=== PATIENT | female | born 1990 | race Caucasian/White ===

== ENCOUNTER 2019-05-07 06:58 | Inpatient (IN) ==
[~2019-05-07 06:58] MED LIST: CeFAZolin Premix DUPLEX 2,000 MG/50 ML BAG IVPB ONE; Famotidine 20 MG/2 ML VIAL IVP PRN; Metoclopramide 10 MG/2 ML VIAL IVP PRN; Naloxone 0.4 MG/ML INJ IVP PRN
[2019-05-07] MEDS ORDERED: Ringers Solution, Lactated 1,000 ML IVC SCH (07:00)
[2019-05-07] MEDS ORDERED: Ringers Solution, Lactated 1,000 ML ONE ×2 (07:00→07:48)
--- NOTE | 2019-05-07 07:04 | OB/GYN History & Physical ---
Date of Encounter: 05/07/19 Time of Encounter: 07:00 Assessment and Plan (1) First in adolescent 16 years of age or older in third trimester Current visit: Yes Status: Acute (2) 38 weeks gestation of Current visit: Yes Status: Acute (3) Spontaneous rupture of membranes Current visit: Yes Status: Acute (4) Oligohydramnios antepartum Current visit: Yes Status: Acute Qualifiers: Fetus number: single or unspecified fetus Qualified Code(s): O41.00X0 - Oligohydramnios, unspecified trimester, not applicable or unspecified (5) Breech presentation Current visit: Yes Status: Acute Patient will be kept nothing by mouth and prepped for a primary low transverse section Qualifiers: Fetus number: single or unspecified fetus Qualified Code(s): O32.1XX0 - Maternal care for breech presentation, not applicable or unspecified History of Present Illness HPI: Ms. Chapman is a 29 year old female 1 para 0 at 38-6/7 weeks who presents to labor and delivery complaining of spontaneous rupture membranes at approximately 6:30 this morning. She states she went to the bathroom her to pop had a large gush of fluid. She states she then had a second gush of fluid that was blood tinged. She was having some cramping that is resolved at this time was having movement not really feeling any movement at this time. Patient is a scheduled later in the week due to breech presentation. Upon arrival to labor and delivery she states she has had no additional leaking bedside ultrasound was performed and the patient confirming breech presentation and it was noted there was no fluid identified in any quadrant around the baby. Speculum exam the patient showed negative nitrazine pooling and ferning however. Due to the fact there is oligohydramnios based on ultrasound I would suspect they are patient is ruptured and we will proceed on with section. Patient states last time she ate was 10 PM. She was GBS negative, O-, rubella positive, Varicella positive Past Med Surg Social Fam HX - Past Medical History Source: patient, old records reviewed Medical history: no medical history Additional medical history: PCOS Psychiatric history: no psych history - Past Surgical History Additional surgical history: UMBILICAL HERNIA REPAIR, excision of left breast fibroadenoma - Social History Smoking Status: Never smoker Smokeless Tobacco Status: No Alcohol use: none Drug use: none Occupational status: employed Current living situation: Home - Independent Activity Level: Independent ambulation Recent Out of Country Travel Within the Last 8 Weeks: No Exposure or Possible Exposure to Illness During Travel: No - Family History Father Hx Family Cardiac Disorders: Yes (HTN) - Additional Family History Additional family history: Family history noncontributory at this time Obstetrical History - Pregnancies : 1 Para: 0 Livin Medications and Allergies Vits96/Iron Fum/Folic [ Tablet] 1 each PO DAILY 05/07/19 [History] Allergy/AdvReac Type Severity Reaction Status Date / Time No Known Allergies Allergy Verified 05/07/19 06:35 Review of System OB All systems PM: reviewed and no additional remarkable complaints except as stated - Genitourinary Genitourinary: other (leaking of fluid) Exam - Constitutional Constitutional: well developed, well nourished, no acute distress, average body habitus - HEENT HEENT: EOMI, PERRL, Mucus Membranes Moist - Neck Neck exam: full ROM - Lungs Respiratory exam: CTAB - Cardiovascular Cardiovascular exam: RRR - Abdomen Abdomen: Present: gravid ( heart tones 140s reactive no contraction seen, bedside ultrasound confirms breech presentation no fluid seen and any) - Cervix Dilation: 1 Effacement: 70 Station: -4 Results All other labs normal.
[2019-05-07 07:12] LABS: Amphetamine Screen,Urine Negative ng/mL (Cutoff=1000); Barbiturate Screen,Urine Negative ng/mL (Cutoff=200)
[2019-05-07 07:13] LABS: Basophils % 0.2 %; Benzodiazepines Screen,Urine Negative ng/mL (Cutoff=300); Cannabinoid Screen,Urine Negative ng/mL (Cutoff = 50); Cocaine Screen,Urine Negative ng/mL (Cutoff= 300); Eosinophils # 0.1 K/mcL (0.0-0.6); Hemoglobin 13.2 g/dL (11.5-15.4); Immature Granulocytes % 0.6 % (0-4); Lymphocytes # 2.3 K/mcL (0.6-4.6); Lymphocytes % 26.5 %; Mean Corpuscular HGB Conc 35.7 g/dL (31.6-35.5); Mean Corpuscular Hemoglobin 34.2 pg (28.0-33.3); Mean Corpuscular Volume 95.9 fL (83.0-100.0); Mean Platelet Volume 11.1 fL (9.4-12.4); Monocytes # 0.8 K/mcL (0.0-1.3); Monocytes % 8.5 %; Neutrophils # 5.6 K/mcL (1.6-8.9); Opiate Screen,Urine Negative ng/mL (Cutoff=300); Phencyclidine Screen,Urine Negative ng/mL (Cutoff=25); Platelet Count 200 K/mcL (140-400); Red Blood Count 3.86 M/mcL (3.82-4.97); Red Cell Distribution Width 12.5 % (11.5-14.5); Segmented Neutrophils % 63.2 %; White Blood Count 8.8 K/mcL (4.3-11.1)
[2019-05-07] MEDS ORDERED: *HR* FentaNYL (PF) 100 MCG/2 ML VIAL ONE (07:48)
[2019-05-07] MEDS ORDERED: *HR* Morphine Sulfate/PF 10 MG/10 ML AMPUL ONE (07:48)
[2019-05-07] MEDS ORDERED: *HR* Oxytocin 10 UNIT/ML VIAL IM ONE ×2 (07:48→09:05)
[2019-05-07] MEDS ORDERED: *HR* Phenylephrine 10 MG/ML VIAL ONE (07:48)
--- NOTE | 2019-05-07 08:04 | Anesthesia Evaluation PreOp ---
Date of Encounter: 05/07/19 Time of Encounter: 08:01 - Past History Planned Operation: Primary Cardiac History: Denies any Significant Hx Pulmonary History: Denies Any Significant HX WRIST LINER History: Denies Any Significant HX Other Medical History: Denies Any Significant HX Anesthesia History: No Prior Anesthetic Complications (never had NA; denies personal and family h/o GA complications), Past Anesthesia (umbilical hernia repair, lumpectomy) : Yes Alcohol Use: none Drug use: none Medications and Allergies Vits96/Iron Fum/Folic [ Tablet] 1 each PO DAILY 05/07/19 [History] Allergy/AdvReac Type Severity Reaction Status Date / Time No Known Allergies Allergy Verified 05/07/19 06:35 - Meds/Allergy Pre-op Review Medications Reviewed: Yes Allergies Reviewed: Yes Beta Blockers on Current Med List: No Anesthesia Results - Labs 05/07/19 06:55 Anesthesia Exam 112/80, HR 114, RR 14 O2 Sat Height 1.65 m Weight 68.2 kg NPO (# of Hours): >8hrs Pain Scale: 0 Pain Scale Used: Numeric (1 - 10) - HEENT Pupil (Motor): Pupils equal Mallampati: II Teeth: Normal Oral Opening: Greater than 3 - WRIST LINER LOC: Oriented WRIST LINER Motor: Normal RUE, Normal LUE, Normal RLE, Normal LLE, Normal Face WRIST LINER Sensory: Normal: RUE, LUE, RLE, LLE, Face - Cardiac Rhythm: Regular Murmur: None - Pulmonary Breath Sounds: bilateral Clear Respiratory Effort: Symmetrical Anesthesia Assess/Plan ASA Score: 2 Level of consciousness: Cooperative, Oriented, Tranquil Anesthetic Plan: General (plan B), Spinal (plan A) Autologous Blood: No Monitoring Plan: Standard Monitors Recovery Plan: PACU
[2019-05-07] MEDS ORDERED: Ibuprofen 400 MG TABLET PO PRN (08:46)
[2019-05-07] MEDS ORDERED: *HR* OxyCODONE/APAP 5/325 TABLET PO PRN (08:46)
[2019-05-07] MEDS ORDERED: Acetaminophen IV 1,000 MG/100 ML INFUS..BTL IVPB ONE (08:46)
[2019-05-07] MEDS ORDERED: Ondansetron 4 MG/2 ML VIAL IVP PRN ×2 (08:46→12:40)
--- NOTE | 2019-05-07 09:04 | Anesthesia Procedures ---
Date of Encounter: 05/07/19 Time of Encounter: 08:39 Procedures: Anesthesia - Epidural/Spinal Patient ID/Chart reviewed: Yes Patient examined: Yes OB Eval: Gestational age: 38 weeks 6 days OB Eval: : 1 OB Eval: Hx Para: 0 OB Eval: Contractions: Non-stressed pattern Consent Obtained: Yes Supplemental Oxygen: None/Room Air Site Prep: Aseptic Technique, Sterile prep and drape, 0.5% Chlorhexidine/Alcohol Patient position: upright Local Anesthetic: Lidocaine 1% Amount of Local Anesthetic used: 3 Interspace Used: L4-L5 Blood: No CSF: Yes Paresthesia: No Spinal Needle Gauge: 25 (3.5" pencan needle) Spinal Dose: see anesthesia record Procedure: successful on 1st attempt; patient tolerated procedure well; VSS Vitals + FHT's: see anesthesia record
--- NOTE | 2019-05-07 09:53 | OB/GYN Procedure Note ---
Section - Date of procedure: 05/07/19 Preop diagnosis: breech Post-op diagnosis: same Procedure: primary low transverse Surgeon: Sandra Tse Blood Loss: 500 Was there an aquatics assistant department head present: Yes Apparel Stock Checker: Kendra Hernandez Pharmacist Manager: Dev Chao Anesthesia Type: Spinal section complications: none Disposition: L&D Recovery Room Specimens: Placenta - (s) A Delivery Date: 05/07/19 Delivery Time: 08:59 Presentation: neftaly breech Gender: Female ("Everley") Viability: Viable Pounds: 6 Ounces: 12 Gram Weight: 3.065 kg at 1 minute: 8 at 5 minutes: 9 Shoulder Dystocia: not encountered Specimens collected: cord blood Placenta: spontaneous Cord: 3 umbilical vessels - Narrative Narrative: Patient was taken to the operative suite and placed under spinal anesthetic. She was then prepped and draped in normal sterile fashion in the dorsal supine position. Timeout was then performed. Antibiotics were given at room time. SCDs are on and active. Pfannenstiel skin incision is then made and carried through to underlying layer of fascia with the Bovie. The fascia was then incised in the midline and incision extended laterally with the Pablo scissors. The fascia was tented up and dissected off the rectus muscles sharply. The rectus muscles were in the midline and the peritoneum was tented up and entered sharply with the Metzenbaum scissors. The peritoneal incision was then extended bluntly. The bladder blade was then inserted and the vesicouterine peritoneum was entered sharply. Bladder flap was created digitally. A low transverse uterine incision was then made. The breech was brought to the incision and the infant was delivered using fundal pressure. There was no nuchal cord. Cord was clamped and cut. was handed to waiting nursery staff. Placenta delivered spontaneously complete and intact with a three-vessel cord. The uterus was cleared of all clots and debris using moist laparotomy sponge. The uterine incision was then closed using 0 Vicryl in a running locked fashion. A second layer of the same suture was used in an imbricating fashion. Additional [id number]-ek-tygyi sutures were used to The abdomen was then cleared of all clots and debris using copious irrigation. The fascial incision was then closed using 0 Vicryl in a running fashion. The skin was closed using 4-0 Vicryl in a subcuticular fashion. Steri-Strips and sterile dressing are then placed. Mother and infant taken to recovery in stable condition.
--- NOTE | 2019-05-07 10:16 | Anesthesia Evaluation Post Op ---
Date of Encounter: 05/07/19 Time of Encounter: 10:15 - Vital Signs Vital Signs: 110/77, HR 94, RR 14, T98.0F, SpO2 97% - Lungs Lungs: Clear Ascult./Percussion - Airway Airway: Non-obstructed - Cardiovascular Regular Rate - Mental Status Mental Status: Alert & Oriented, Answers Appropriately - Pain Pain Scale: 0 Pain Scale used: Numeric (1 - 10) - Nausea Vomiting Nausea Vomiting: Not Present - Hydration Hydration: NPO, Pat catheter - Discharge PostOp Status: Transfer Patient to floor
[2019-05-07] MEDS ORDERED: Metoclopramide 10 MG/2 ML VIAL IVP PRN (12:40)
[2019-05-07] MEDS ORDERED: Simethicone 80 MG TAB.CHEW PO PRN (12:40)
[2019-05-07] MEDS ORDERED: Sennosides 8.6 MG TABLET PO PRN (12:40)
[2019-05-07] MEDS ORDERED: Rho Immune Globulin 1,500 UNIT SYRINGE IM ONE (12:40)
[2019-05-07] MEDS ORDERED: Acetaminophen 325 MG TABLET PO PRN (12:40)
[2019-05-07] MEDS ORDERED: *HR* OxyCODONE Immed Rel 5 MG TABLET PO PRN (12:40)
[2019-05-07] MEDS ORDERED: Oxytocin 20 units/ LR 1000 mL 20 UNIT/1,000 ML BAG IVC SCH ×2 (12:40)
--- NOTE | 2019-05-07 13:47 | OB/GYN Progress Note ---
Date of Encounter: 05/07/19 Time of Encounter: 13:45 - Assessment and Plan (1) S/P section Current Visit: Yes Status: Acute Dressing looks fine with minimal pink on the right side which is outlined. Continue to monitor Subjective - Subjective Principal diagnosis: CTSP: saturating her dressing Interval history: Called to see patient after changing a 60% saturated original dressing. Patient denies any concerns at this time. She states she is not having any pain. The daughter is nursing well. She states she has had bouts of nausea following dizziness, but feels fine now. No vomiting. Patient reports: appetite normal, pain well controlled, no nauseated Objective - Vital Signs Latest vital signs: Vital Signs Temp Pulse Pulse Resp BP Pulse Ox 05/07/19 13:15 82 82 16 99/64 96 05/07/19 12:35 97.9 F 86 86 16 109/75 97 05/07/19 12:05 84 16 Intake and Output 05/06/19 05/07/19 05/07/19 23:59 07:59 15:59 Output Total 450 / 450 Balance -450 / -450 Output: Catheter 450 / 450 Other: Weight 68.2 kg Patient Weight 05/07/19 23:59 Weight 68.2 kg - I&O's I&O's: Intake & Output 05/04/19 05/05/19 05/06/19 05/07/19 23:59 23:59 23:59 23:59 Output Total 450 / 450 Balance -450 / -450 Weight 68.2 kg - Exam Lungs: bilateral: normal Chest: Normal S1, Normal S2 Extremities: Absent: tenderness Incision OB: Present: dressed (small area of pink on the right side of the incision) - Labs Labs: Abnormal lab results MCH 34.2 pg (28.0-33.3) H 05/07/19 06:55 MCHC 35.7 g/dL (31.6-35.5) H 05/07/19 06:55
[2019-05-08] MEDS: Ibuprofen 600 MG TABLET PO PRN ×4 (01:05→18:55)
[2019-05-08 06:25] LABS: Basophils % 0.2 %; Eosinophils # 0.1 K/mcL (0.0-0.6); Eosinophils % 0.8 %; Hematocrit 35.9 % (35.3-44.9); Hemoglobin 12.4 g/dL (11.5-15.4); Immature Granulocytes % 0.5 % (0-4); Lymphocytes # 2.4 K/mcL (0.6-4.6); Lymphocytes % 18.9 %; Mean Corpuscular HGB Conc 34.5 g/dL (31.6-35.5); Mean Corpuscular Hemoglobin 34.3 pg (28.0-33.3); Mean Corpuscular Volume 99.2 fL (83.0-100.0); Mean Platelet Volume 11.1 fL (9.4-12.4); Monocytes % 7.6 %; Neutrophils # 9.2 K/mcL (1.6-8.9); Platelet Count 162 K/mcL (140-400); Red Blood Count 3.62 M/mcL (3.82-4.97); Red Cell Distribution Width 12.4 % (11.5-14.5); White Blood Count 12.8 K/mcL (4.3-11.1)
[2019-05-08] MEDS: Prenatal Vit/FA 1 EACH TABLET PO SCH (08:01)
[2019-05-08] MEDS ORDERED: Rho Immune Globulin 1,500 UNIT SYRINGE IM ONE (12:00)
--- NOTE | 2019-05-08 12:58 | OB/GYN Progress Note ---
Date of Encounter: 05/08/19 Time of Encounter: 12:56 - Assessment and Plan (1) Status post primary low transverse section Current Visit: Yes Status: Acute Meeting all day 1 milestones Continue routine care Anticipate discharge home tomorrow (2) Breast feeding status of mother Current Visit: Yes Status: Acute support as needed Subjective - Subjective Principal diagnosis: s/p PLTCS Interval history: Feeling well. Out of bed without dizziness. Some abdominal discomfort-using binder. Cramping minimal, using ibuprofen and Percocet. every 2- 3 hours. Some nipple soreness. Voiding without difficulty. Passing flatus, no BM yet. Tolerating clear liquid diet. Patient reports: appetite normal, voiding normally, pain well controlled, ambulating normally : doing well, nursing well Objective - Vital Signs Latest vital signs: Vital Signs Temp Pulse Pulse Resp BP Pulse Ox 05/08/19 08:00 98.4 F 80 92 14 117/82 05/08/19 05:15 98.3 F 82 16 100/66 97 05/08/19 01:00 98.3 F 86 14 104/70 96 05/08/19 00:50 86 14 05/07/19 19:35 86 16 05/07/19 19:30 98.5 F 86 16 128/46 95 05/07/19 15:15 98.1 F 76 18 115/73 97 05/07/19 14:20 97.7 F 83 83 16 103/70 96 05/07/19 13:15 82 82 16 99/64 96 Intake and Output 05/07/19 05/08/19 05/08/19 23:59 07:59 15:59 Intake Total 900 / 1700 800 / 1700 Output Total 200 / 850 1750 / 2350 600 / 2350 Balance -200 / -850 -850 / -650 200 / -650 Intake: Oral 900 / 1700 800 / 1700 Output: Urine 650 / 1250 600 / 1250 Catheter 200 / 850 1100 / 1100 Other: Weight 66.224 kg Patient Weight 05/08/19 23:59 Weight 66.224 kg - Exam Lungs: bilateral: normal Chest: Normal S1, Normal S2 Extremities: Present: normal Abdomen: Present: normal appearance, soft Incision: Present: normal, dry, intact, dressed Uterus: Present: normal, firm Fundal Height: 2 (below and midline) - Labs Labs: Laboratory Results - last 24 hr 05/07/19 05/08/19 10:10 05:46 WBC 12.8 H RBC 3.62 L Hgb 12.4 Hct 35.9 MCV 99.2 MCH 34.3 H MCHC 34.5 RDW 12.4 Plt Count 162 MPV 11.1 Immature Gran % 0.5 Seg Neutrophils % 72.0 Lymphocytes % 18.9 Monocytes % 7.6 Eosinophils % 0.8 Basophils % 0.2 Neutrophils # 9.2 H Lymphocytes # 2.4 Monocytes # 1.0 Eosinophils # 0.1 Basophils # 0.0 Screen NEGATIVE Baby's Blood Type B RH POSITIVE Mother's Blood Type O RH NEGATIVE Rhogam Indicated YES Rhogam Req for Mother 1
[2019-05-08] MEDS: *HR* OxyCODONE/APAP 5/325 TABLET PO PRN ×2 (15:08→20:31)
[2019-05-09] MEDS: Ibuprofen 600 MG TABLET PO PRN ×2 (00:49→07:07)
[2019-05-09] MEDS: *HR* OxyCODONE/APAP 5/325 TABLET PO PRN ×3 (03:07→11:37)
[2019-05-09 08:48] VITALS: BP 121/80
[2019-05-09] MEDS: Prenatal Vit/FA 1 EACH TABLET PO SCH (09:58)
--- NOTE | 2019-05-09 12:30 | Discharge Summary ---
Date of Encounter: 05/09/19 Time of Encounter: 12:24 - Discharge Diagnosis (1) Status post primary low transverse section Priority: Primary Status: Acute Comments: Feeling well Tolerating regular diet Pain well-controlled with by mouth pain meds Ambulating independently Voiding independently Lochia light Passing flatus, no BM yet Vital signs stable Discharge home today (2) Breast feeding status of mother Priority: Secondary Status: Acute Comments: Community resources provided - Discharge Medications Prescriptions: New Ibuprofen [Motrin] 600 mg PO Q6HR PRN #30 tablet PRN Reason: Cramping OxyCODONE/APAP 5/325 [Percocet 5/325 MG] 1 each PO Q6HR PRN 5 Days #20 tablet PRN Reason: Moderate pain 4-6 Acetaminophen [Tylenol] 325 mg PO Q6HR PRN tablet PRN Reason: Fever/Pain Docusate [Colace] 100 mg PO BID #30 capsule Continued Vits96/Iron Fum/Folic [ Tablet] 1 each PO DAILY Home Medications: Vits96/Iron Fum/Folic [ Tablet] 1 each PO DAILY 05/07/19 [History] Acetaminophen [Tylenol] 325 mg PO Q6HR PRN tablet 05/09/19 [Rx] Docusate [Colace] 100 mg PO BID #30 capsule 05/09/19 [Rx] Ibuprofen [Motrin] 600 mg PO Q6HR PRN #30 tablet 05/09/19 [Rx] OxyCODONE/APAP 5/325 [Percocet 5/325 MG] 1 each PO Q6HR PRN 5 Days #20 tablet 05/09/19 [Rx] Allergies/Adverse Reactions: Allergy/AdvReac Type Severity Reaction Status Date / Time No Known Allergies Allergy Verified 05/07/19 06:35 Data Procedures and tests throughout hospitalization: Laboratory Tests 05/07/19 05/07/19 05/07/19 06:55 06:55 10:10 WBC 8.8 RBC 3.86 Hgb 13.2 Hct 37.0 MCV 95.9 MCH 34.2 H MCHC 35.7 H RDW 12.5 Plt Count 200 MPV 11.1 Immature Gran % 0.6 Seg Neutrophils % 63.2 Lymphocytes % 26.5 Monocytes % 8.5 Eosinophils % 1.0 Basophils % 0.2 Neutrophils # 5.6 Lymphocytes # 2.3 Monocytes # 0.8 Eosinophils # 0.1 Basophils # 0.0 Urine Opiates Screen Negative Ur Buprenorphine Scrn Negative Ur Barbiturates Screen Negative Ur Phencyclidine Scrn Negative Ur Amphetamines Screen Negative U Benzodiazepines Scrn Negative Urine Cocaine Screen Negative U Marijuana (THC) Screen Negative Ur Drug Screen Interp See Below Screen NEGATIVE Baby's Blood Type B RH POSITIVE Mother's Blood Type O RH NEGATIVE Rhogam Indicated YES Rhogam Req for Mother 1 05/08/19 05:46 WBC 12.8 H RBC 3.62 L Hgb 12.4 Hct 35.9 MCV 99.2 MCH 34.3 H MCHC 34.5 RDW 12.4 Plt Count 162 MPV 11.1 Immature Gran % 0.5 Seg Neutrophils % 72.0 Lymphocytes % 18.9 Monocytes % 7.6 Eosinophils % 0.8 Basophils % 0.2 Neutrophils # 9.2 H Lymphocytes # 2.4 Monocytes # 1.0 Eosinophils # 0.1 Basophils # 0.0 Urine Opiates Screen Ur Buprenorphine Scrn Ur Barbiturates Screen Ur Phencyclidine Scrn Ur Amphetamines Screen U Benzodiazepines Scrn Urine Cocaine Screen U Marijuana (THC) Screen Ur Drug Screen Interp Screen Baby's Blood Type Mother's Blood Type Rhogam Indicated Rhogam Req for Mother Date of admission: 05/07/19 06:58 Primary care physician: Lori Ty MD Discharging clinician: Shyanne Albarran Anticipated date of discharge: 05/09/19 - Patient Status Disposition: Home, Self-Care Condition: Good Functional capacity at discharge: independent ambulation Overall status at discharge: patient is progressing back to baseline - Discharge Instructions Follow Up With: Lori Ty MD [Primary Care Provider] - Sandra Valdivia DO [Partnered Physician] - - Diet and Activity Activity: increase activity as tolerated Diet: regular diet Hospital Course Reason for admission: section, IUP at term, ROM Delivery: section Episiotomy: none Laceration: none Other procedures: none complications: none Discharge diagnosis: IUP at term delivered baby: female Time Attestation: Total time spent providing and/or coordinating discharge services: Time Spent: Less than 30 minutes - VTE Reasons for not Prescribing Prophylaxis: Treatment not Indicated - Low risk for VTE Documentation of Mechanical Device: Intermittent pneumatic compression device Exam - Constitutional Vitals: Temp Pulse Resp BP Pulse Ox 97.9 F 96 14 121/80 97 05/09/19 08:47 05/09/19 08:47 05/09/19 09:44 05/09/19 08:47 05/08/19 20:22 General appearance IM: A&O X 3, pleasant, no acute distress, answers questions appropriately - Respiratory Respiratory exam: Present: CTAB - Cardiovascular Cardiovascular exam IM: Present: RRR, +S1, +S2 - GI/Abdominal GI/Abdominal exam IM: normal bowel sounds, no peritoneal signs Incision: normal, dry, intact, dressed - Rectal Rectal exam: deferred - Uterine Tone: Firm Uterus Position: At Umbilicus, Midline - Extremities Exam Extremities exam IM: Present: full ROM, normal capillary refill, normal inspection, radial pulses palpable and symmetrical - Neurological Exam Neurological exam: alert, CN II-XII intact, normal gait, oriented X3, reflexes normal, no focal deficits, strengths equal and symetr throughout - Psychiatric Additional comments: Signs and symptoms of depression discussed with patient and partner and both verbalized understanding of when to seek help
== END 2019-05-09 13:30 | disposition home or self-care (01) | DRG 787 ==
LOC: 1NENULAB → 1NENUOBS 12:40
PROVIDERS: ADMIT Registered Nurse; ATTEND Registered Nurse

== ENCOUNTER 2021-02-16 05:29 | Inpatient (IN) ==
[2021-02-16] MEDS ORDERED: Ondansetron 4 MG/2 ML VIAL IVP PRN ×3 (05:42→10:54)
[2021-02-16] MEDS ORDERED: Azithromycin 500 MG in 0.9 % Sodium Chloride 250 ML IVPB PRN (05:42)
[2021-02-16] MEDS ORDERED: Metoclopramide 10 MG/2 ML VIAL IVP PRN ×2 (05:42→10:54)
[2021-02-16] MEDS ORDERED: Famotidine 20 MG/2 ML VIAL IVP PRN (05:42)
[2021-02-16] MEDS ORDERED: Naloxone 0.4 MG/ML INJ IVP PRN (05:42)
[2021-02-16] MEDS ORDERED: Ringers Solution, Lactated 1,000 ML IVC ONE (05:43)
[2021-02-16] MEDS ORDERED: CeFAZolin 2,000MG/50ML DUPLEX 2,000 MG/50 ML BAG IVPB ONE (05:44)
[2021-02-16] MEDS ORDERED: Ringers Solution, Lactated 1,000 ML IVC SCH (05:45)
[2021-02-16] MEDS ORDERED: *HR* Morphine Sulfate/PF 10 MG/10 ML AMPUL ONE (06:51)
[2021-02-16] MEDS ORDERED: *HR* FentaNYL (PF) 250 MCG/5 ML VIAL ONE (06:51)
[2021-02-16 07:14] LABS: Basophils % 0.3 %; Eosinophils # 0.1 K/mcL (0.0-0.6); Eosinophils % 0.6 %; Hematocrit 33.6 % (35.3-44.9); Hemoglobin 11.7 g/dL (11.5-15.4); Immature Granulocytes % 0.4 % (0-4); Lymphocytes # 3.2 K/mcL (0.6-4.6); Lymphocytes % 32.6 %; Mean Corpuscular HGB Conc 34.8 g/dL (31.6-35.5); Mean Corpuscular Hemoglobin 33.7 pg (28.0-33.3); Mean Corpuscular Volume 96.8 fL (83.0-100.0); Mean Platelet Volume 11.6 fL (9.4-12.4); Monocytes # 0.4 K/mcL (0.0-1.3); Monocytes % 3.7 %; Neutrophils # 6.1 K/mcL (1.6-8.9); Platelet Count 236 K/mcL (140-400); Red Blood Count 3.47 M/mcL (3.82-4.97); Red Cell Distribution Width 12.9 % (11.5-14.5); Segmented Neutrophils % 62.4 %; White Blood Count 9.8 K/mcL (4.3-11.1)
[2021-02-16] MEDS ORDERED: *HR* HYDROmorphone (PF) 1 MG/ML SYRINGE IVP PRN (08:38)
[2021-02-16] MEDS ORDERED: Ketorolac 30 MG/ML VIAL ONE (08:49)
[2021-02-16] MEDS ORDERED: Acetaminophen IV 1,000 MG/100 ML BAG IVPB ONE (08:50)
[2021-02-16 10:24] LABS: Amphetamine Screen,Urine Negative ng/mL (Cutoff=1000); Barbiturate Screen,Urine Negative ng/mL (Cutoff=200); Benzodiazepines Screen,Urine Negative ng/mL (Cutoff=200); Cannabinoid Screen,Urine Negative ng/mL (Cutoff = 50); Cocaine Screen,Urine Negative ng/mL (Cutoff= 300); Opiate Screen,Urine Negative ng/mL (Cutoff=300); Phencyclidine Screen,Urine Negative ng/mL (Cutoff=25)
[2021-02-16] MEDS ORDERED: Oxytocin 20 units/ LR 1000 mL 20 UNIT/1,000 ML BAG IVC ONE (10:51)
[2021-02-16] MEDS ORDERED: Rho Immune Globulin 1,500 UNIT SYRINGE IM ONE (10:54)
[2021-02-16] MEDS: Prenatal Vit/FA 1 EACH TABLET PO SCH (12:16)
[2021-02-16] MEDS: Acetaminophen 325 MG TABLET PO SCH ×2 (12:28→17:49)
[2021-02-16] MEDS: Ibuprofen 600 MG TABLET PO SCH ×2 (12:29→17:50)
[2021-02-16] MEDS: Oxytocin 20 units/ LR 1000 mL 20 UNIT/1,000 ML BAG IVC SCH ×2 (12:30→20:18)
[2021-02-16] MEDS: *HR* OxyCODONE Immed Rel 5 MG TABLET PO PRN (22:32)
[2021-02-17] MEDS: Acetaminophen 325 MG TABLET PO SCH ×5 (01:24→19:31)
[2021-02-17] MEDS: Ibuprofen 600 MG TABLET PO SCH ×4 (01:25→22:18)
[2021-02-17] MEDS: *HR* OxyCODONE Immed Rel 5 MG TABLET PO PRN ×5 (03:07→23:56)
[2021-02-17] MEDS: Simethicone 80 MG TAB.CHEW PO PRN ×3 (08:46→22:18)
[2021-02-17] MEDS: Prenatal Vit/FA 1 EACH TABLET PO SCH (08:46)
[2021-02-18] MEDS: Acetaminophen 325 MG TABLET PO SCH ×2 (03:40→11:19)
[2021-02-18] MEDS: *HR* OxyCODONE Immed Rel 5 MG TABLET PO PRN ×3 (03:41→11:18)
[2021-02-18] MEDS: Simethicone 80 MG TAB.CHEW PO PRN (07:22)
[2021-02-18] MEDS: Prenatal Vit/FA 1 EACH TABLET PO SCH (07:22)
[2021-02-18 07:53] VITALS: BP 111/75
[2021-02-18] MEDS: Ibuprofen 600 MG TABLET PO SCH (08:45)
== END 2021-02-18 12:00 | disposition home or self-care (01) | DRG 788 ==
LOC: 1NENULAB 05:29 → 1NENUOBS 11:11
PROVIDERS: ADMIT Obstetrics & Gynecology; ATTEND Obstetrics & Gynecology